=== PATIENT | female | born 1960 | race Caucasian/White ===

== ENCOUNTER → 2017-01-13 | Outpatient (CLI) | payer BC ==
--- NOTE | 2017-01-13 16:24 | PCVCIMAG ---
APPROVED REPORT Study performed: 01/13/2017 15:08:12 EXAM: Comprehensive 2D, Doppler, and color-flow Echocardiogram Status: routine Other Information Study Quality: Adequate Risk Factors: Cardiac Risk Factors: HTN Indications Dyspnea elevated calcium score 2D Dimensions LVEF(%): 57.28 (>50%) IVSd: 10.05 (7-11mm) LVDd: 42.24 mm PWd: 10.05 (7-11mm) LVDs: 29.65 (25-40mm) Left Atrium: 32.94 (27-40mm) Aortic Root: 31.97 mm LV Single Plane 4CH: 61.35 % LV Single Plane 2CH: 67.74 %Orozco's LVEF: 64.54 % Biplane EF: 64.0 % Volumes Left Atrial Volume (Systole) Single Plane 4CH: 36.31 mLSingle Plane 2CH: 52.33 mL LA ESV Index: 25.00 mL/m2 Aortic Valve AoV Peak Stanley.: 1.54 m/s AO Peak Gr.: 9.46 mmHgLVOT Max P.27 mmHg LVOT Max V: 1.03 m/s Mitral Valve E/A Ratio: 0.9 MV Decel. Time: 290.53 ms MV E Max Stanley.: 0.59 m/s MV A Stanley.: 0.69 m/s IVRT: 89.97 ms Pulmonary Valve PV Peak Stanley.: 0.83 m/sPV Peak Gr.: 2.77 mmHg Pulmonary Vein P Vein S: 0.35 m/sP Vein A: 0.32 m/s P Vein D: 0.51 m/sP Vein A Dur.: 110.7 msec P Vein S/D Ratio: 0.69 Tricuspid Valve TR Peak Stanley.: 2.47 m/s TR Peak Gr.: 24.39 mmHg Left Ventricle The left ventricle is normal size. There is normal LV segmental wall motion. There is normal left ventricular wall thickness. Left ventricular systolic function is normal. The left ventricular ejection fraction is within the normal range. LVEF is 60-65%. Grade I - abnormal relaxation pattern. Right Ventricle The right ventricle is normal size. The right ventricular systolic function is normal. Atria The left atrium size is normal. The right atrium size is normal. Aortic Valve The aortic valve is normal in structure. No aortic regurgitation is present. There is no aortic valvular stenosis. Mitral Valve The mitral valve is normal in structure. Mild mitral regurgitation. No evidence of mitral valve stenosis. Tricuspid Valve The tricuspid valve is normal in structure. Mild tricuspid valve regurgitation noted. Pulmonic Valve The pulmonary valve is normal in structure. There is no pulmonic valvular regurgitation with PAP of 31 mmHg. Great Vessels The aortic root is normal in size. IVC is normal in size and collapses with >50% inspiration Pericardium There is no pericardial effusion. <Conclusion> The left ventricle is normal size. Left ventricular systolic function is normal. Grade I - abnormal relaxation pattern. The right ventricle is normal size. The left atrium size is normal. The aortic valve is normal in structure. Mild mitral regurgitation. Mild tricuspid valve regurgitation noted. There is no pericardial effusion.
--- NOTE | 2017-01-13 16:27 | PCVCIMAG ---
APPROVED REPORT Exam: Stress Echocardiogram Indication: Elevated Calcium score, htn, dyspnea Stress Nurse: Shelby Shahid RN Status: routine HR: 75 bpm Medical History Medical History: HTN Procedure The patient underwent an Exercise Stress Test using the Rayshawn Protocol. Blood pressure, heart rate, and EKG were monitored. An Echocardiogram was performed by crime scene technician in four stages in quad fashion. At peak stress, four selected images were obtained and placed side by side with resting images for comparison. Stress Test Details Stress Test: Exercise stress testing was performed using a Rayshawn protocol. HR Resting HR: 75 bpmMax Heart Rate (APMHR): 163 bpm Max HR Achieved: 181 bpmTarget HR (85% APMHR): 138 bpm % of APMHR: 111 Recovery HR: 90 bpm HR response to stress: Normal HR response to stress BP Resting BP: 108/76 mmHg Max BP: 180/86 mmHg Recovery BP: 126/80 mmHg ECG Resting ECG: Sinus Rhythm Stress ECG: Sinus Rhythm ST Change: Inferior and latertal ST depression Maximum ST Deviation: 3 mm Arrhythmia: None Recovery ECG: Sinus Rhythm Clinical Reason for Termination: Maximal effort Stress Symptoms: Dyspnea Exercise duration: 9 min 00 sec Exercise capacity: 10.1 METs Overall Exercise Capacity for Age: Good Scale: Active Pre-Stress Echo The resting Echocardiogram showed normal left ventricular contractility with an estimated Ejection Fraction of about >55%. Normal wall motion in all segments on baseline images. Post-Stress Echo The stress Echocardiogram showed normal left ventricular contractility with an estimated Ejection Fraction of about 50-55%. The stress Echocardiogram demonstrated wall motion abnormality in the mid to distal anteroseptal wall. Clinical Ischemic ST changes Conclusion Clinical Response: Non-ischemic Exercise Capacity: Average Stress ECG Response: Ischemic Stress Echo Images: Ischemic
== END | disposition home or self-care (01) ==
LOC: PCVCIMAG 15:00
PROVIDERS: ATTEND Internal Medicine Cardiovascular Disease
DX: I25.10 Atherosclerotic heart disease of native coronary artery without angina pectoris (principal); I10 Essential (primary) hypertension; E78.00 Pure hypercholesterolemia, unspecified; E83.52 Hypercalcemia; Z79.82 Long term (current) use of aspirin; Z79.899 Other long term (current) drug therapy
CPT/HCPCS: 93306; 93351